=== PATIENT | female | born 1985 | race African-American/Black ===

== ENCOUNTER 2017-09-16 16:25 | Emergency (ER) | payer MEDICAID ==
[~2017-09-16] VITALS: Ht 167.6 cm; Wt 68.2 kg
[~2017-09-16 16:25] MED LIST: CARB200 PO; DEXTLIQ OR; MUCI600T PO; ORPH100T PO; PROM6.257 PO; RISP1 PO
[2017-09-16 16:27] VITALS: BP 124/81; PULSE 114; RESP 16; TEMP 98.4; O2SAT 98
--- NOTE | 2017-09-16 20:22 | PD ---
Physical Exam Date Seen by Provider: Sep 16, 2017 Time Seen by Provider: 17:43 Narrative 32 year old female presents to the emergency department for evaluation of chills , body aches, decreased appetite for 3 days. She also has cough and congestion. She reports fevers up to 102. Current pain is 8/10. Data Data Last Documented VS Vital Signs Date Time Temp Pulse Resp B/P (MAP) Pulse Ox O2 Delivery O2 Flow Rate FiO2 09/16/17 16:27 98.4 114 16 124/81 (95) 98 Orders Orders Influenzae A/B Antigen (09/16/17 16:44) [facility] Supervised Visit with YUNI: No Narrative Course 32 year old female presents to the emergency department for evaluation of flu- like symptoms. Patient is initially seen in triage and work-up is started. She left AMA before she could be placed in a medical bed. Diagnosis Primary Impression: Left against medical advice Additional Impression: Flu-like symptoms Disposition: 07 AGAINST MEDICAL ADVICE Ramona Vargas Sep 16, 2017 20:22
== END 2017-09-16 18:15 | disposition left against medical advice (07) ==
LOC: NED 16:25
DX: R68.83 Chills (without fever) (principal); Z53.21 Procedure and treatment not carried out due to patient leaving prior to being seen by health care provider
CPT/HCPCS: 87804; 99283

== ENCOUNTER 2017-12-13 04:46 | Emergency (ER) | payer MEDICAID, MEDICARE ==
[~2017-12-13] VITALS: Ht 167.6 cm; Wt 80.0 kg
[2017-12-13 05:02] VITALS: BP 150/69; PULSE 99; RESP 18; TEMP 99; O2SAT 98
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
[2017-12-13] MEDS ORDERED: HYDR8TAB PO (06:05)
[2017-12-13] MEDS ORDERED: TEGR200T PO (06:05)
[2017-12-13] MEDS ORDERED: RISP1TAB2 PO (06:05)
[2017-12-13] MEDS ORDERED: CYCL5TAB PO (06:05)
[2017-12-13] MEDS ORDERED: MELO7.5T27 PO (06:05)
[2017-12-13] MEDS ORDERED: CEPH-460 PO (06:05)
== END 2017-12-13 06:28 | disposition home or self-care (01) ==
LOC: NEPD 04:46
DX: S60.511A Abrasion of right hand, initial encounter (principal); W22.8XXA Striking against or struck by other objects, initial encounter; W25.XXXA Contact with sharp glass, initial encounter; J45.909 Unspecified asthma, uncomplicated; F32.9 Major depressive disorder, single episode, unspecified; Z72.0 Tobacco use
CPT/HCPCS: 99283